=== PATIENT | female | born 1970 ===

== ENCOUNTER 2024-10-14 22:30 | Emergency (ER) | payer OTHER, SELFPAY ==
[2024-10-14 22:44] VITALS: BP 105/75; PULSE 98; RESP 16; TEMP 36.6; O2SAT 98; BMI 20.7
--- NOTE | 2024-10-14 22:49 | ED.GENADULT ---
HPI - General Adult General Chief complaint: Chest Pain Stated complaint: 160 HR, Heavy chest Time Seen by Provider: 10/14/24 22:41 History of Present Illness HPI narrative: 1800 doing lawn work states watch said hr 200, felt heavy chest. laid down, went to 160s. comes to ER to be evaluated but states HR is calmed to 100. current symptom is heart burn. 54-year-old woman presenting to the emergency department with concern of rapid heart rate. Beginning while raking was feeling fatigued, short of breath, and had heart rate in the 160s and not lower than 100 that persisted over a couple of hours. Seems to have improved now presenting to the emergency department. Been left with some heartburn. Has had that before but not common. No known cardiac disease. She mentions a few times that is overall improved and they are considering leaving. History of workup for elevated heart rate with ZIO patch which captured nothing. Labs were done at that time as well and unremarkable. Related Data Home Medications ?Medication ?Instructions ?Recorded ?Confirmed No Known Home Medications 10/14/24 10/14/24 Allergies Allergy/AdvReac Type Severity Reaction Status Date / Time No Known Drug Allergies Allergy Verified 10/14/24 22:47 Review of Systems Status of ROS: Reports: 6 or more systems reviewed and unremarkable except as noted in History and below PFSH PFS Social History Smoking Status: Never smoker Second hand tobacco smoke exposure: No How often do you have a drink containing alcohol: never AUDIT-C Alcohol total score: 0 Non-prescribed substance use: denies use Exam Narrative: Exam Narrative: Pleasant. NAD. Breathing easily. Cranial nerves 2-12 intact. Lungs appear to be clear. Heart in regular rate and rhythm or gallop. Difficult to reproduce discomfort in the epigastrium seems to be deep to the lower sternum. Extremities are well perfused without edema. No JVD. Const: Vital Signs, click to edit/add: Vital Signs - 24 hr 10/14/24 22:44 10/15/24 00:04 10/15/24 00:59 Temperature 97.8 F 97.8 F Pulse Rate [Pulse Oximeter] 98 85 Respiratory Rate 16 16 Blood Pressure [Ri ght Upper Arm] 105/75 112/83 Pulse Oximetry 98 98 98 Oxygen Delivery Me thod Room Air Room Air Documenting provider has reviewed patient's vital signs: yes Course Vital Signs Vital signs: Initial Vital Signs Temperature 97.8 F 10/14/24 22:44 Temperature Source Temporal Artery Scan 10/14/24 22:44 Pulse Rate 98 10/14/24 22:44 Respiratory Rate 16 10/14/24 22:44 Blood Pressure 105/75 10/14/24 22:44 Blood Pressure Mean 85 10/14/24 22:44 Blood Pressure Position Sitting 10/14/24 22:44 Pulse Oximetry 98 10/14/24 22:44 Oxygen Delivery Method Room Air 10/14/24 22:44 Vital Signs Temperature 97.8 F 10/14/24 22:44 Pulse Rate 98 10/14/24 22:44 Respiratory Rate 16 10/14/24 22:44 Blood Pressure 105/75 10/14/24 22:44 Pulse Oximetry 98 10/14/24 22:44 Oxygen Delivery Method Room Air 10/14/24 22:44 Temperature 97.8 F 10/15/24 00:59 Pulse Rate 85 10/15/24 00:59 Respiratory Rate 16 10/15/24 00:59 Blood Pressure 112/83 10/15/24 00:59 Pulse Oximetry 98 10/15/24 00:59 Oxygen Delivery Method Room Air 10/15/24 00:59 Medical Decision Making MDM Narrative Medical decision making narrative: I would suspect supraventricular tachycardia with rate as noted. And secondary demand ischemia. Concerning though I suppose is the heartburn; might represent cardiac ischemia. This is also radiating around to her back bilaterally. She does not have her gallbladder. Later tells me that she did have labs 5 days ago and wondering if repeating labs as necessary. Will just proceed with Shows me normal CMP, TSH and CBC Orders modified to looking at magnesium and troponin I only EKG 1. Independently reviewed by me shows normal sinus rhythm without ischemic changes rate of 91 Initial troponin is 0.1 which is significant. I did anticipate this might be elevated. With her overall comfort I think it would be worth trending her troponin. Continued on clinical data management manager. Repeat troponin I is nearly doubled at 0.19. This was done on the ED trope which can be a few 100ths less than the lab troponin. On reexamination epigastric discomfort has settled though still present. Blood pressure and pulse is continue to look good. Repeat EKG is unchanged at a rate of 74 I did call to discuss with cardiology who are recommending transfer for further cardiac evaluation. Treating as non-STEMI. Aspirin and heparin Lab Data Lab results reviewed: Yes I reviewed the patient's lab results Labs: Lab Results 10/14/24 10/14/24 10/14/24 Range/Units 23:01 23:10 23:27 Hgb Cancelled Magnesium 2.1 (1.5-2.6) mg/dL Troponin I 0.10 H* (0.01-0.04) ng/mL Lab Acknowledgement Test Added POC Troponin I (0.01-0.04) ng/ml 10/15/24 10/15/24 Range/Units 00:50 01:40 Hgb Magnesium (1.5-2.6) mg/dL Troponin I (0.01-0.04) ng/mL Lab Acknowledgement Test Added POC Troponin I 0.19 H (0.01-0.04) ng/ml Critical Care Time Critical Care Time Critical Care Time: Yes Attestation: The patient required my highest level preparedness to intervene emergently and I personally spent this critical care time directly and personally managing the patient. This critical care time included: Obtaining a history; Examining the patient; Pulse oximetry; Ordering and reviewing of studies; Arranging urgent treatment with development of a management plan; Evaluation of patients response to treatment; Frequent reassessment discussions with other providers. This critical care time was performed to assess and manage the high probability of imminent life-threatening deterioration that could result in multiorgan failure. It was exclusive of separate billable procedures and treating other patients and teaching time. Total Critical Care Time in Minutes: 40 Discharge Plan Discharge Clinical Impression: Elevated troponin, Non-ST elevated myocardial infarction (non-STEMI), Tachycardia Patient Disposition: Xfer [facility] Discharge Location: [facility] Condition: Stable Prescriptions: No Action No Known Home Medications Follow Up/Referrals: Provider,Not a Local [Primary Care Provider] - Stand Alone Forms: Renters[employer] Info Instructions
--- OUTSIDE RECORDS SUMMARY | 2024-10-14 23:25 | XMS_ITS | Encounter Summary ---
Author Organization [facility] Address [address] [place] [id number] Care Team Providers Care Tobacco Feeder Catcher Name Role Phone Zaira Moraes APRN, CNP Primary Care Provider Tim Yates MD Unavailable [phone] Funmi Jaime CNP Unavailable [phone] Reason for Referral * Diagnostic Imaging Mammo (Routine) - Pending Review Specialty Diagnoses / Procedures Referred By Timo berkowitz Referred To Contact Radiology. Diagnoses Encounter for screening mammogram for breast cancer Procedures MA Screen with Implants Bilateral w/El Zaira Moraes APRN CNP [address] [place] [id number] Phone: tel: fax: Referral ID Status Reason Start Date Expiration Date V isits Requested Visits Authorized [id number] Pending Review 10/09/2024 10/09/2025 1 1 Reason for Visit * Reason Comments Physical Encounter Details Date Type Department Care Team (Late st Contact Info) Description 10/09/2024 9:00 AM CDT Office Visit [address] [phone] Zaira Moraes APRN CNP [address] [place] [address] [phone] Routine general medical examination at a health care facility (Primary Dx); Encounter for screening mammogram for breast cancer; Screening for lipid disorders; Screening for diabetes mellitus; Screening for deficiency anemia; Screening for thyroid disorder; Encounter for vitamin deficiency screening Social History Tobacco Use Types Packs/Day Years Used Date Smoking Tobacco: Never Smokeless Tobacco: Never Alcohol Use Standard Drinks/Week Comments No 0 (1 standard drink = 0.6 oz pur e alcohol) Social Connection and Isolation Panel [NHANES] A nswer Date Recorded Frequency of Communication with Friends and Fami ly Not on file 10/09/2024 How often do you get togethe r with friends or relatives? Three times a week 10/09/2024 Attends Judaism Services Not on file 10/09 Active Member of Clubs or Organizations Not on f ile 10/09/2024 Attends Club or Organization Meetings Not on edna e 10/09/2024 Marital Status Not on file 10/09/2024 PHQ-2 Answer Date Recorded PHQ-2 Score 0 10/09/2024 [facility] - Occupational Stress Questionnaire Answer Date Recorded Do you feel stress - tense, restless, nervous, or anxious, or unable to sleep at night because your mind is troubled all the time - these days? Not at all 10/09/2024 Exercise Vital Sign Answer Date Recorde d On average, how many days pe r week do you engage in moderate to strenuous exercise (like a brisk walk)? 5 days 10/09/2024 On average, how many minutes do you engage in exercise at this level? 60 min 10/09/2024 Food Insecurity Answer Date Recorded Within the past 12 months, d id you worry that your food would run out before you got money to buy more? No 10/09/2024 Within the past 12 months, d id the food you bought just not last and you didn t have money to get more? No 10/09/2024 Housing Stability Answer Date Recorded Do you have housing? (Phoebe g is defined as stable permanent housing and does not include staying ouside in a car, in a tent, in an abandoned building, in an overnight snf, or couch-surfing.) No 10/09/2024 Are you worried about losing your housing? No 10/09/2024 Financial Resource Strain Answer Date R ecorded Within the past 12 months, h ave you or your family members you live with been unable to get utilities (heat, electricity) when it was really needed? No 10/09/2024 Transportation Needs Answer Date Record ed Within the past 12 months, h as lack of transportation kept you from medical appointments, getting your medicines, non-medical meetings or appointments, work, or from getting things that you need? No 10/09/2024 Interpersonal Safety Answer Date Record ed Do you feel physically and e motionally safe where you currently live? Yes 05/23/2024 Within the past 12 months, h ave you been hit, slapped, kicked or otherwise physically hurt by someone? No 05/23/2024 Within the past 12 months, h ave you been humiliated or emotionally abused in other ways by your partner or ex-partner? No 05/23/2024 Comments No Sex and Gender Information Value Date Recorded Sex Assigned at Not on file Legal Sex Female 9:20 AM CDT Gender Identity Not on file Sexual Orientation Not on file documented as of this encounter Last Filed Vital Signs Vital Sign Reading Time Taken Comments Blood Pressure 108/82 10/09/2024 9:17 AM CDT Pulse 73 10/09/2024 9:17 AM CDT Temperature 36.3 C (97.4 F) 10/09/2024 9:17 AM CDT Respiratory Rate 17 10/09/2024 9:17 AM CDT Oxygen Saturation 99% 10/09/2024 9:17 AM CDT Inhaled Oxygen Concentration - - Weight 48.1 kg (106 lb) 10/09/2024 9:17 AM CDT Height 151.1 cm (4' 11.5) 10/09/2024 9:17 AM CD T Body Mass Index 21.05 10/09/2024 9:17 AM CDT documented in this encounter Patient Instructions * Patient Instructions* Zaira Moraes APRN M[employer]CH ROCK[employer] SYSTEM CREWMEMBER - 10/09/2024 9:00 AM CDT Patient Education Preventive Care Advice This is general advice given by our system to help you stay healthy. However, your care team may have specific advice just for you. Please talk to your care team about your preventive care needs. Nutrition Eat 5 or more servings of fruits and vegetables each day. Try wheat bread, brown rice and whole grain pasta (instead of white bread, rice, and pasta). Get enough calcium and vitamin D. Check the label on foods and aim for 100% of the [employer] MAINTENAN[employer]CH[employer]IC (recommendeddaily allowance). Lifestyle Exercise at least 150 minutes each week (30 minutes a day, 5 days a week). Do muscle strengthening activities 2 days a week. These help control your weight and prevent disease. No smoking. Wear sunscreen to prevent skin cancer. Have a dental exam and cleaning every 6 months. Yearly exams See your health care team every year to talk about: Any changes in your health. Any medicines your care team has prescribed. Preventive care, family planning, and ways to prevent chronic diseases. Shots (vaccines) HPV shots (up to age 26), if you've never had them before. Hepatitis B shots (up to age 59), if you've never had them before. COVID-19 shot: Get this shot when it's due. Flu shot: Get a flu shot every year. Tetanus shot: Get a tetanus shot every 10 years. Pneumococcal, hepatitis A, and RSV shots: Ask your care team if you need these based on your risk. Shingles shot (for age 50 and up) General health tests Diabetes screening: Starting at age 35, Get screened for diabetes at least every 3 years. If you are younger than age 35, ask your care team if you should be screened for diabetes. Cholesterol test: At age 39, start having a cholesterol test every 5 years, or more often if advised. Bone density scan (DEXA): At age 50, ask your care team if you should have this scan for osteoporosis (brittle bones). Hepatitis C: Get tested at least once in your life. STIs (sexually transmitted infections) Before age 24: Ask your care team if you should be screened for STIs. After age 24: Get screened for STIs if you're at risk. You are at risk for STIs (including HIV) if: You are sexually active with more than one person. You don't use condoms every time. You or a partner was diagnosed with a sexually transmitted infection. If you are at risk for HIV, ask about PrEP medicine to prevent HIV. Get tested for HIV at least once in your life, whether you are at risk for HIV or not. Cancer screening tests Cervical cancer screening: If you have a cervix, begin getting regular cervical cancer screening tests starting at age 21. Breast cancer scan (mammogram): If you've ever had breasts, begin having regular mammograms starting at age 40. This is a scan to check for breast cancer. Colon cancer screening: It is important to start screening for colon cancer at age 45. Have a colonoscopy test every 10 years (or more often if you're at risk) Or, ask your provider about stool tests like a FIT test every year or Cologuard test every 3 years. To learn more about your testing options, visit: . For help making a decision, visit: https://bit.ly/zj87905. Prostate cancer screening test: If you have a prostate, ask your care team if a prostate cancer screening test (PSA) at age 55 is right for you. Lung cancer screening: If you are a current or former smoker ages 50 to 80, ask your care team if ongoing lung cancer screenings are right for you. For informational purposes only. Not to replace the advice of your health care provider. Copyright ?? 2022 [employer] [employer]. All rights reserved. Clinically reviewed by the [facility] Transitions Program. [employer] [id number] - REV 07/18. documented in this encounter Progress Notes * Zaira Moraes APRN CNP - 10/09/2024 9:00 AM CDT Images from the original note were not included. Preventive Care Visit [facility] Zaira Olivarez. MATTEO Moraes CNP, Family Medicine Oct 09, 2024 Assessment & Plan Suzanne was seen today for physical. Diagnoses and all orders for this visit: Routine general medical examination at a health care facility - PRIMARY CARE FOLLOW-UP SCHEDULING; Future To consider Shingrix and Prevnar 20 vaccines. Encounter for screening mammogram for breast cancer - MA Screen with Implants Bilateral w/El; Future Screening for lipid disorders - Lipid panel reflex to direct LDL Fasting; Future Screening for diabetes mellitus - Comprehensive metabolic panel (BMP + Alb, Alk Phos, ALT, AST, Total. Bili, TP); Future Screening for deficiency anemia - CBC with platelets; Future - Ferritin; Future Screening for thyroid disorder - TSH with free T4 reflex; Future Encounter for vitamin deficiency screening - Vitamin D Deficiency; Future Counseling Appropriate preventive services were addressed with this patient via screening, questionnaire, or discussion as appropriate for fall prevention, nutrition, physical activity, Tobacco-use cessation, social engagement, weight loss and cognition. Checklist reviewing preventive services available has been given to the patient. Reviewed patient's diet, addressing concerns and/or questions. Return in about 1 year (around 10/09/2025) for Preventative Visit . 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 Reports relatively recent Tdap with occupational health. Hot flashes and night sweats, which are tolerable. S/P hysterectomy in 2013. Advance Care Planning Discussed advance care planning with patient; informed AVS has link to [facility]. 10/09/2024 General Health How would you rate your overall physical health? Good Feel stress (tense, anxious, or unable to sleep) Not at all 10/09/2024 Nutrition Three or more servings of calcium each day? Yes Diet: Regular (no restrictions) How many servings of fruit and vegetables per day? (!) 2-3 How many sweetened beverages each day? 0-1 10/09/2024 Exercise Days per week of moderate/strenous exercise 5 days Average minutes spent exercising at this level 60 min 10/09/2024 Social Factors Frequency of gathering with friends or relatives Three times a week Worry food won't last until get money to buy more No Food not last or not have enough money for food? No Do you have housing? (Housing is defined as stable permanent housing and does not include staying ouside in a car, in a tent, in an abandoned building, in an overnight snf, or couch-surfing.) No Are you worried about losing your housing? No Lack of transportation? No Unable to get utilities (heat,electricity)? No Want help with housing or utility concern? No (!) HOUSING CONCERN PRESENT 10/09/2024 Fall Risk Fallen 2 or more times in the past year? No Trouble with walking or balance? No 10/09/2024 Dental Dentist two times every year? Yes Today's PHQ-9 Score: 10/09/2024 7:42 AM PHQ-9 SCORE PHQ-9 Total Score MyChart 0 PHQ-9 Total Score 0 Patient-reported 10/09/2024 Substance Use Alcohol more than 3/day or more than 7/wk No Do you use any other substances recreationally? No Social History Tobacco Use Smoking status: Never Smokeless tobacco: Never Substance Use Topics Alcohol use: No Drug use: No Mammogram Screening - Mammogram every 1-2 years updated in Health Maintenance based on mutual decision making 10/09/2024 STI Screening New sexual partner(s) since last STI/HIV test? No History of abnormal Pap smear: Status post hysterectomy with removal of cervix and no history of CIN2 or greater or cervical cancer. Health Maintenance and Surgical History updated. 04/21/2011 1:58 PM PAP / HPV PAP (Historical) NIL ASCVD Risk Water Meter Installer The ASCVD Risk score (Fidel RM, et al., 2019) failed to calculate for the following reasons: Cannot find a previous HDL lab Cannot find a previous total cholesterol lab Reviewed and updated as needed this visit by Provider Problems Surg Hx Fam Hx BP Readings from Last 3 Encounters: 10/09/24 108/82 06/06/24 124/86 06/04/24 115/74 Wt Readings from Last 3 Encounters: 10/09/24 48.1 kg (106 lb) 06/06/24 44.7 kg (98 lb 9.6 oz) 06/04/24 46.3 kg (102 lb) Patient Active Problem List Diagnosis Restless leg Symptomatic menopausal or female climacteric states Vitamin D deficiency Herpes zoster History of cervical dysplasia Hx of total vaginal hysterectomy Lichen simplex Pap smear of cervix with ASCUS, cannot exclude HGSIL Rectal polyp Past Surgical History: Procedure Laterality Date CHOLECYSTECTOMY 2005 COLONOSCOPY N/A 06/06/2024 Procedure: Colonoscopy; Surgeon: Tim Levin MD; Location: [facility] HYSTERECTOMY 2013 [place] BREAST AUGMENTATION 2021 Social History Tobacco Use Smoking status: Never Smokeless tobacco: Never Substance Use Topics Alcohol use: No Family History Problem Relation Age of Onset No Known Problems Father Allergies Sister Depression Sister Allergies Sister Depression Sister Allergies Sister Gynecology Sister Depression Brother Diabetes Maternal Grandmother Hypertension Maternal Grandmother Cerebrovascular Disease Maternal Grandmother Eye Disorder Maternal Grandmother Hypertension Maternal Grandfather Cerebrovascular Disease Maternal Grandfather Prostate Cancer Maternal Grandfather Cancer Maternal Grandfather Cardiovascular Maternal Grandfather Heart Disease Maternal Grandfather Lipids Maternal Grandfather Allergies Daughter Allergies Daughter Asthma Daughter Allergies Son Current Outpatient Medications Medication Sig Dispense Refill cyclobenzaprine (FLEXERIL) 5 MG tablet Take 1 tablet (5 mg) by mouth 3 times daily as needed for muscle spasms. 30 tablet 0 Review of Systems Constitutional, HEENT, cardiovascular, pulmonary, gi and gu systems are negative, except as otherwise noted. Objective Exam BP 108/82 Pulse 73 Temp 97.4 ??F (36.3 ??C) Resp 17 Ht 1.511 m (4' 11.5) Wt 48.1 kg (106lb) LMP 04/09/2011 SpO2 99% BMI 21.05 kg/m?? Estimated body mass index is 21.05 kg/m?? as calculated from the following: Height as of this encounter: 1.511 m (4' 11.5). Weight as of this encounter: 48.1 kg (106 lb). Physical Exam GENERAL: alert and no distress EYES: Eyes grossly normal to inspection HENT: ear canals and TM's normal, nose and mouth without ulcers or lesions NECK: no adenopathy, no asymmetry, masses, or scars RESP: lungs clear to auscultation - no rales, rhonchi or wheezes CV: regular rate and rhythm, normal S1 S2, no S3 or S4, no murmur, click or rub, no peripheral edema ABDOMEN: soft, nontender, bowel sounds normal MS: no gross musculoskeletal defects noted, no edema SKIN: no suspicious lesions or rashes NEURO: Normal strength and tone, mentation intact and speech normal PSYCH: mentation appears normal, affect normal/bright Signed Electronically by: Zaira Moraes APRN CNP documented in this encounter Miscellaneous Notes * Result Encounter Note - Zaira Moraes APRN CNP - 10/09/2024 9:00 AM CDT Dear Suzanne, -Normal red blood cell (hgb) levels, normal white blood cell count and normal platelet levels. Thank you, Zaira Moraes APRN, M[employer] SYSTEM CREWMEMBER [facility] * Result Encounter Note - Zaira Moraes APRN CNP - 10/09/2024 9:00 AM CDT Dear Suzanne, -LDL(bad) cholesterol level is slightly elevated, and your triglycerides are slightly elevated. Your HDL is normal. ADVISE: exercising 150 minutes of aerobic exercise per week (30 minutes for 5 days per week or 50 minutes for 3 days per week are options) and eating a low saturated fat/low carbohydrate diet to help to improve this. In 12 months, you should recheck your fasting cholesterol panel. -Liver and gallbladder tests are normal (ALT,AST, Alk phos, bilirubin), kidney function is normal (Cr, GFR), sodium is normal, potassium is normal, calcium is normal, glucose is normal. -TSH (thyroid stimulating hormone) level is normal which indicates normal thyroid function. -Vitamin D level is normal and getting 1000 IU daily in your diet or supplements is recommended. -Ferritin (iron) level is normal. Also, I placed the order for your Tdap and you can get this done here in clinic when it is convenient for you. Thank you, Zaira Olivarez. MATTEO Moraes, FE [facility] * Addendum Note - Zaira Moraes APRN CNP - 10/09/2024 9:00 AM CDTAddended by: ZAIRA MORAES on: 10/09/2024 01:23 PM Modules accepted: Orders documented in this encounter Plan of Treatment Scheduled Orders Name Type Priority Associated Diagnoses Orde r Schedule MA Screen with Implants Bilateral w/El Imaging Routine Encounter for screening mammogram for breast cancer Expected: 10/09/2024 (Approximate), Expires: 10/09/2025 documented as of this encounter Procedures Procedure Name Priority Date/Time Associated Diagnosis Comments VITAMIN D DEFICIENCY SCREENING Routine 10/09/2024 11:07 AM CDT Encounter for vitamin deficiency screening TSH WITH FREE T4 REFLEX Routine 10/09/2024 11:07 AM CDT Screening for thyroid disorder LIPID REFLEX TO DIRECT LDL PANEL Routine 10/09/2024 11:07 AM CDT Screening for lipid disorders FERRITIN Routine 10/09/2024 11:07 AM CDT Screening for deficiency anemia COMPREHENSIVE METABOLIC PANEL Routine 10/09/2024 11:07 AM CDT Screening for diabetes mellitus CBC WITH PLATELETS Routine 10/09/2024 11 :07 AM CDT Screening for deficiency anemia documented in this encounter Results * Ferritin (10/09/2024 11:07 AM CDT) Ferritin 282 11 - 328 ng/mL 10/10/2024 12:57 AM CDT [facility] Blood BLOOD SPECIMEN / Unknown Venipuncture / Unknown 10/09/2024 11:07 AM CDT 10/09/2024 11:07 AM CDT us Zaira Moraes APRN [employer] CREWMEMBER LAB - BLOOD ORDERABLES Final Result [facility] [place] [facility] [address] [facility], [address] [phone] * Vitamin D Deficiency (10/09/2024 11:07 AM CDT) Vitamin D, Total (25-Hydroxy) 21 20 - 50 ng/mL 10/10/2024 12:57 AM CDT [facility] Comment:optimum levels Blood BLOOD SPECIMEN / Unknown Venipuncture / Unknown 10/09/2024 11:07 AM CDT 10/09/2024 11:07 AM CDT Narrative [facility] - 10/10/2024 12:57 AM CDT Season, race, dietary intake, and treatment affect the concentration of 57-kqfceld-Urclzrc D. Values may decrease during winter months and increase during summer months. Vitamin D determination is routinely performed by an immunoassay specific for 25 hydroxyvitamin D3. If an individual is on vitamin D2(ergocalciferol) supplementation, please specify 25 [place] vitamin D2 and D3 level determination by LCMSMS test VITD23. Zaira Moraes APRN [employer] CREWMEMBER LAB - BLOOD ORDERABLES Final Result Performing Organization Address City/[facility]/ZIP Co de Phone Number [facility] [place] [facility] [address] [facility], [address] * TSH with free T4 reflex (10/09/2024 11:07 AM CDT) TSH 1.47 0.30 - 4.20 uIU/mL 10/10/2024 12:57 AM CDT [facility] Blood BLOOD SPECIMEN / Unknown Venipuncture / Unknown 10/09/2024 11:07 AM CDT 10/09/2024 11:07 AM CDT Zaira Moraes APRN [employer] CREWMEMBER LAB - BLOOD ORDERABLES Final Result Performing Organization Address City/[facility]/ZIP Co de Phone Number [facility] [address] [place] [address], [address] * (ABNORMAL) Lipid panel reflex to direct LDL Fasting (10/09/2024 11:07 AM CDT) Cholesterol 235(H) <200 mg/dL 10/10/2024 12:57 AM CDT [facility] Triglycerides 157(H) <150 mg/dL 10/10/2024 12:57 AM CDT [facility] Direct Measure HDL 68 >=50 mg/dL 10/10/2024 12:57 AM CDT [facility] LDL Cholesterol Calculated 136(H) <100 mg/dL 10/10/2024 12:57 AM CDT [facility] Non HDL Cholesterol 167(H) <130 mg/dL 10/10/2024 12:57 AM CDT [facility] Patient Fasting > 8hrs? Unknown 10/10/2024 12:57 AM CDT [facility] Blood BLOOD SPECIMEN / Unknown Venipuncture / Unknown 10/09/2024 11:07 AM CDT 10/09/2024 11:07 AM CDT Narrative [facility] - 10/10/2024 12:57 AM CDT Cholesterol Desirable: < 200 mg/dL Borderline High: 200 - 239 mg/dL High: >= 240 mg/dL Triglycerides Normal: < 150 mg/dL Borderline High: 150 - 199 mg/dL High: 200-499 mg/dL Very High: >= 500 mg/dL Direct Measure HDL Female: >= 50 mg/dL Male: >= 40 mg/dL LDL Cholesterol Desirable: < 100 mg/dL Above Desirable: 100 - 129 mg/dL Borderline High: 130 - 159 mg/dL High: 160 - 189 mg/dL Very High: >= 190 mg/dL Non HDL Cholesterol Desirable: < 130 mg/dL Above Desirable: 130 - 159 mg/dL Borderline High: 160 - 189 mg/dL High: 190 - 219 mg/dL Very High: >= 220 mg/dL us Zaira Moraes FUR REPAIRER [employer] CREWMEMBER LAB - BLOOD ORDERABLES Final Result [facility] [place] [facility] [address] [facility], [address] [place], [place] [id number] * CBC with platelets (10/09/2024 11:07 AM CDT) WBC Count 7.0 4.0 - 11.0 10e3/uL 10/09/2024 11:09 AM CDT [facility] RBC Count 4.80 3.80 - 5.20 10e6/uL 10/09/2024 11:09 AM CDT [facility] Hemoglobin 14.7 11.7 - 15.7 g/dL 10/09/2024 11:09 AM CDT [facility] Hematocrit 43.7 35.0 - 47.0 % 10/09/2024 11:09 AM CDT [facility] MCV 91 78 - 100 fL 10/09/2024 11:09 AM CDT [facility] MCH 30.6 26.5 - 33.0 pg 10/09/2024 11:09 AM CDT [facility] MCHC 33.6 31.5 - 36.5 g/dL 10/09/2024 11:09 AM CDT [facility] RDW 12.0 10.0 - 15.0 % 10/09/2024 11:09 AM CDT [facility] Platelet Count 348 150 - 450 10e3/uL 10/09/2024 11:09 AM CDT [facility] Blood BLOOD SPECIMEN / Unknown Venipuncture / Unknown 10/09/2024 11:07 AM CDT 10/09/2024 11:07 AM CDT Zaira Olivarez Meixl FUR REPAIRER [employer] CREWMEMBER LAB - BLOOD ORDERABLES Final Result [facility] [place] [facility] [address] [place] [address] Lab (no room number, 1st floor of clinic) [place] [address], [facility] * Comprehensive metabolic panel (BMP + Alb, Alk Phos, ALT, AST, Total. Bili, TP) (10/09/2024 11:07 AMCDT) Sodium 137 135 - 145 mmol/L 10/10/2024 12:57 AM CDT [facility] Potassium 4.5 3.4 - 5.3 mmol/L 10/10/2024 12:57 AM CDT [facility] Carbon Dioxide (CO2) 26 22 - 29 mmol/L 10/10/2024 12:57 AM CDT [facility] Anion Gap 10 7 - 15 mmol/L 10/10/2024 12:57 AM CDT [facility] Urea Nitrogen 14.2 6.0 - 20.0 mg/dL 10/10/2024 12:57 AM CDT [facility] Creatinine 0.74 0.51 - 0.95 mg/dL 10/10/2024 12:57 AM CDT [facility] GFR Estimate >90 >60 mL/min/1.7 3m2 10/10/2024 12:57 AM CDT [facility] Comment:eGFR calculated us2020 CKD-EPI equation. Calcium 9.6 8.8 - 10.4 mg/dL 10/10/2024 12:57 AM CDT [facility] Chloride 101 98 - 107 mmol/L 10/10/2024 12:57 AM CDT [facility] Glucose 91 70 - 99 mg/dL 10/10/2024 12:57 AM CDT [facility] Alkaline Phosphatase 72 40 - 150 U/L 10/10/2024 12:57 AM CDT [facility] AST 22 0 - 45 U/L 10/10/2024 12:57 AM CDT [facility] ALT 13 0 - 50 U/L 10/10/2024 12:57 AM CDT [facility] Protein Total 7.8 6.4 - 8.3 g/dL 10/10/2024 12:57 AM CDT [facility] Albumin 4.6 3.5 - 5.2 g/dL 10/10/2024 12:57 AM CDT [facility] Bilirubin Total 0.5 <=1.2 mg/dL 10/10/2024 12:57 AM CDT [facility] Patient Fasting > 8hrs? Unknown 10/10/2024 12:57 AM CDT [facility] Blood BLOOD SPECIMEN / Unknown Venipuncture / Unknown 10/09/2024 11:07 AM CDT 10/09/2024 11:07 AM CDT us Zaira Moraes APRN MULTIPLE LAUNCH ROCKET SYSTEM CREWMEMBER LAB - BLOOD ORDERABLES Final Result [facility] [place] [facility] [address] [facility], Room [address] [id number] documented in this encounter Visit Diagnoses Diagnosis Routine general medical examination at a health care facility- Primary Encounter for screening mammogram for breast cancer Screening for lipid disorders Screening for diabetes mellitus Screening for deficiency anemia Screening for other and unspecified deficiency anemia Screening for thyroid disorder Encounter for vitamin deficiency screening Screening for other and unspecified endocrine, nutritional, metabolic, and immunity disorders documented in this encounter Additional Health Concerns Assessment Noted Time PHQ-9 Depression Total Score: 0 10/10/19 25 7:42 AM CDT documented as of this encounter Care Teams Tobacco Feeder Catcher Relationship Specialty Start Date End Date Zaira Moraes APRN MULTIPLE LAUNCH ROCKET SYSTEM CREWMEMBER [address] [place] [phone] PCP - General Family Medicine 05/23/24 [place] [address] [place] [address] [id number] Internal Medicine 05/23/24 Funmi Jaime CNP [address] [place] [address] [phone] Assigned PCP 06/16/24 documented as of this encounter
--- OUTSIDE RECORDS SUMMARY | 2024-10-14 23:25 | XMS_ITS | Encounter Summary ---
Author Organization [place] Address [address] [place] [address]. [place] [address] Care Team Providers Care Parachute Panel Joiner Name Role Phone Zaira Moraes APRN MARINE SERVICE STATION ATTENDANT Primary Care Provider Tim Yates MD Unavailable [phone] Funmi Jaime MARINE SERVICE STATION ATTENDANT Unavailable [phone] Encounter Details Date Type Department Care Team (Late st Contact Info) Description 06/03/2024 [facility] Medical Advice [facility] [address] [place] [address] Lauren Bueno, RN Social History Tobacco Use Types Packs/Day Years Used Date Smoking Tobacco: Never Smokeless Tobacco: Never Alcohol Use Standard Drinks/Week Comments No 0 (1 standard drink = 0.6 oz pur e alcohol) PHQ-2 Answer Date Recorded PHQ-2 Score 0 05/23/2024 Interpersonal Safety Answer Date Record ed Do [...] on file documented as of this encounter Plan of Treatment Not on file documented as of this encounter Visit Diagnoses Not on filedocumented in this encounter Care Teams Parachute Panel Joiner Relationship Specialty Start Date End Date Zaira Moraes APRN MARINE SERVICE STATION ATTENDANT [address] [place] [address] [phone] PCP - General Family Medicine 05/23/24 Tim Yates MD [address] [place] [address] [phone] Internal Medicine 05/23/24 Fnumi Jaime CNP [address] [place] [address] [phone] Assigned PCP 06/16/24 documented as of this encounter
--- OUTSIDE RECORDS SUMMARY | 2024-10-14 23:25 | XMS_ITS | Encounter Summary ---
Author Organization [place] Address [address] [place] [address]. [place] [address] Care Team Providers Care School Attendance Secretary Name Role Phone Zaira Moraes APRN QUANTITATIVE DEVELOPER Primary Care Provider Tim Yates MD Unavailable [phone] Funmi Jaime QUANTITATIVE DEVELOPER Unavailable [phone] Encounter Details Date Type Department Care Team (Late st Contact Info) Description 05/30/2024 [facility] [place] [facility] [address]th [place] [address] Lauren Bueno, RN Social History [...] on filedocumented in this encounter Care Teams School Attendance Secretary Relationship Specialty Start Date End Date Zaira Moraes APRN QUANTITATIVE DEVELOPER [address] [place] [address] [phone] PCP - General Family Medicine 05/23/24 Tim Yates MD [address] [place] [address] [phone] Internal Medicine 05/23/24 Funmi Jaime CNP [address] [place] [address] [phone] Assigned PCP 06/16/24 documented as of this encounter
--- OUTSIDE RECORDS SUMMARY | 2024-10-14 23:25 | XMS_ITS | Clinical Summary ---
Author Organization [place] Address [address] [place] [phone] Care Team Providers Care Parcel Post Carrier Name Role Phone Zaira Moraes APRN [facility] Primary Care Provider Jude Yates MD Unavailable [phone] Funmi Jaime [facility] Unavailable [phone] Allergies No known active allergies Medications cyclobenzaprin e (FLEXERIL) 5 MG tabletIndicati ons:Acute right-sided low back pain without sciatica Take 1 tablet (5 mg) by mouth 3 times daily as needed for muscle spasms. 30 tablet 06/04/20 24 Active methylPREDNISo lone (MEDROL DOSEPAK) 4 MG tablet therapy packIndication s:Acute right-sided low back pain without sciatica Follow Package Directions 21 tablet 06/04/20 24 025 Discontinued Hospital, Clinic, or Other Facility Administered Medication Ordered Dose Route Frequency Start Date End Date Status sodium chloride (PF) 0.9% PF flush 3 mLIndications:RLQ abdominal pain 3 mL IV EVERY 1 MIN PRN 06/04/2024 Activ e Active Problems Problem Noted Date Diagnosed Date Rectal polyp 05/30/2021 Overview (10/08/2024): 3 mm hyperplastic polyp in the rectum - due 2030 Lichen simplex 04/05/2021 History of cervical dysplasia 03/15/2020 Hx of total vaginal hysterectomy 01/26/2014 Pap smear of cervix with ASCUS, cannot exclude H GSIL 03/25/2013 Overview (10/08/2024): 03/2013 ASC-H 04/2013 [place]: JAQUAN I, ECC Benign 11/2013 HYST Cervix Foci of squamous cellular changes suspicious for HPV Plan: Annual Pap X 20yrs Pap due 03/2022 Herpes zoster 08/29/2012 Overview (10/08/2024): Herpes zoster prevention: Prevention of herpes zoster (shingles) in patients >=50 years of age Vitamin D deficiency 04/26/2011 Restless leg 04/21/2011 Symptomatic menopausal or female climacteric sta darya 04/21/2011 Resolved Problems Problem Noted Date Diagnosed Date Resolved Date Adjustment disorder with mix ed anxiety and depressed mood 11/05/2012 10/09/2024 Encounters Date Type Department Care Team Description 10/09/2024 9:00 AM CDT Office Visit [address] [address] Zaira Moraes APRN DOCTOR OF VETERINARY MEDICINE Routine general medical examination at a health care facility (Primary Dx); Encounter for screening mammogram for breast cancer; Screening for lipid disorders; Screening for diabetes mellitus; Screening for deficiency anemia; Screening for thyroid disorder; Encounter for vitamin deficiency screening 10/09/2024 Travel from Last 3 Months Immunizations Name Administration Dates Next Due COVID-19 Bivalent 12+ (Pfizer) 05/05/2022 Flu, Unspecified 05/07/2020,04/12/2015 Influenza (IIV3) PF 05/09/2016,03/14/2013 Influenza Vaccine >6 months,quad, PF ,05/05/2022,06/03/2021,2018,07/15/2018,05/24/2017,05/08/2016 Influenza, Split Virus, Triv alent, Pf (Fluzone\Fluarix) 05/08/2024 TDAP (Adacel,Boostrix) 12/22/2013 TDAP Vaccine (Adacel) 04/21/2011 Tdap (Adult) Unspecified Formulation 1970 Family History Medical History Relation Comments Depression Brother 2 Allergies Daughter 1 Allergies Daughter 3 Asthma Daughter 3 No Known Problems Father Cancer Maternal Grandfather Cardiovascular Maternal Grandfather Cerebrovascular Disease Maternal Grandfather Heart Disease Maternal Grandfather Hypertension Maternal Grandfather Lipids Maternal Grandfather Prostate Cancer Maternal Grandfather Cerebrovascular Disease Maternal Grandmother Diabetes Maternal Grandmother Eye Disorder Maternal Grandmother Hypertension Maternal Grandmother Allergies Sister 1 Depression Sister 1 Allergies Sister 2 Depression Sister 2 Allergies Sister 3 Gynecology Sister 5 Allergies Son Relation Status Comments Brother 1 Alive Brother 2 Daughter 1 Alive Daughter 2 Alive Daughter 3 Alive Father Other Maternal Grandfather Maternal Grandmother Alive Mother Alive Paternal Grandfather Other Paternal Grandmother Other Sister 1 Alive Sister 2 Alive Sister 3 Alive Sister 4 Alive Sister 5 Alive Son Alive Social History Tobacco Use Types Packs/Day Years [...] relatives? Three times a week 10/09/2024 Attends Spiritism Services Not on file 10/09 Active Member of Clubs or Organizations Not on f ile 10/09/2024 Attends Club or Organization Meetings Not on edna e 10/09/2024 Marital Status Not on file 10/09/2024 PHQ-2 Answer Date Recorded PHQ-2 Score 0 10/09/2024 [facility] - Occupational Stress Questionnaire Answer Date Recorded [...] Date Recorded Do you have housing? (Phoebe campos is defined as stable permanent housing and does not include staying ouside in a car, in a tent, in an abandoned building, in an overnight chcf, or couch-surfing.) No 10/09/2024 Are you worried [...] on file Sexual Orientation Not on file Last Filed Vital Signs Vital Sign Reading [...] Mass Index 21.05 10/09/2024 9:17 AM CDT Plan of Treatment Health Maintenance Due Date Last Done Comments ANNUAL REVIEW OF HM ORDERS 1970 CT COLONOGRAPHY 1970 FIT 1970 FLEX SIG 1970 sDNA (Cologuard) 1970 HEPATITIS B IMMUNIZATION (1 of 3 - 19+ 3-dose series) 1990 Pneumococcal Vaccine: 50+ Years (1 of 1 - PCV) 2021 ZOSTER IMMUNIZATION (1 of 2) 2021 DTAP/TDAP/TD IMMUNIZATION (3 - Td or Tdap) 12/23/2023 12/22/2013, 04/21/2011, 1970 COVID-19 Vaccine ( season) 2024 05/05/2022, 05/23/2021, 07/28/2020, Additional history exists PAP 04/05/2024 04/05/2021, 03/25, 04/21/2011, Additional history exists MAMMO SCREENING 05/05/2025 05/05/2023, 01/2023, 03/02/2023, Additional history exists YEARLY PREVENTIVE VISIT 10/09/2025 10/10/19 25, 03/16/2023, 04/05/2021, Additional history exists DIABETES SCREENING 10/10/2027 10/09/2024, 1 08/05/2023, 04/21/2011 ADVANCE CARE PLANNING 10/09/2029 10/09/2024 LIPID 10/09/2029 10/09/2024, 03/26, 12/10/2008 COLONOSCOPY 06/06/2034 06/06/2024, 05/25, 06/04/2021, Additional history exists COLORECTAL CANCER SCREENING 06/06/2034 HEPATITIS C SCREENING Completed 02/26/2019, 009 HIV SCREENING Completed 02/26/2019, 12/10/2008 INFLUENZA VACCINE Completed 05/08/2024, , 05/05/2022, Additional history exists PHQ-2 (once per calendar year) Completed 10/09/2024, 10/09/2024, 05/23/2024 HPV IMMUNIZATION Aged Out No longer e ligible based on patient's age to complete this topic MENINGITIS IMMUNIZATION Aged Out No l onger eligible based on patient's age to complete this topic Procedures Procedure Name Priority Date/Time Associated Diagnosis Comments FERRITIN Routine 10/09/2024 11:07 AM CDT Screening for deficiency anemia VITAMIN D DEFICIENCY SCREENING Routine 10/09/2024 11:07 AM CDT Encounter for vitamin deficiency screening TSH WITH FREE T4 REFLEX Routine 10/09/2024 11:07 AM CDT Screening for thyroid disorder LIPID REFLEX TO DIRECT LDL PANEL Routine 10/09/2024 11:07 AM CDT Screening for lipid disorders CBC WITH PLATELETS Routine 10/09/2024 11 :07 AM CDT Screening for deficiency anemia COMPREHENSIVE METABOLIC PANEL Routine 10/09/2024 11:07 AM CDT Screening for diabetes mellitus COLONOSCOPY Routine 06/06/2024 1:09 PM MULTIPLE DRUM SANDER HELPER MAMMOGRAM - HIM SCAN Routine 05/05/2023 PAP IMAGED THIN LAYER SCREEN Routine 04/21/2011 1:58 PM CDT Screening for malignant neoplasm of the cervix HIV ANTIGEN ANTIBODY COMBO Routine 12/10/2008 10:00 AM CDT ACUTE HEPATITIS PANEL Routine 12/10/2008 10:00 AM CDT from Last 3 Months or Most Recently Relevant to Health Maintenance Results * Vitamin D Deficiency (10/09/2024 11:07 AM CDT) Vitamin D, Total (25-Hydroxy) 21 20 - 50 ng/mL 10/10/2024 12:57 AM CDT [facility] Comment:optimum levels Blood BLOOD SPECIMEN / Unknown Venipuncture / Unknown 10/09/2024 11:07 AM CDT 10/09/2024 11:07 AM CDT Narrative [facility] - 10/10/2024 12:57 AM CDT Season, race, dietary intake, and treatment affect the concentration of 81-gdeghko-Dibxlad D. Values may decrease during winter months and increase during summer months. Vitamin D determination is routinely performed by an immunoassay specific for 25 hydroxyvitamin D3. If an individual is on vitamin D2(ergocalciferol) supplementation, please specify 25 OH vitamin D2 and D3 level determination by LCMSMS test VITD23. Zaira Moraes APRN DOCTOR OF VETERINARY MEDICINE LAB - BLOOD ORDERABLES Final Result Performing Organization Address City/[facility]/ZIP Co de Phone Number [facility] [place] [facility] 500 [facility], Room [address] [place] [address] * TSH with free T4 reflex (10/09/2024 11:07 AM CDT) TSH 1.47 0.30 - 4.20 uIU/mL 10/10/2024 12:57 AM CDT [facility] Blood BLOOD SPECIMEN / Unknown Venipuncture / Unknown 10/09/2024 11:07 AM CDT 10/09/2024 11:07 AM CDT Zaira Moraes APRN DOCTOR OF VETERINARY MEDICINE LAB - BLOOD ORDERABLES Final Result Performing Organization Address City/[facility] Co de Phone Number [facility] Lab [address] [place] [address], [address] * (ABNORMAL) Lipid panel reflex to [...] High: >= 220 mg/dL us Zaira Moraes APRN DOCTOR OF VETERINARY MEDICINE LAB - BLOOD ORDERABLES Final Result LABORATORY [facility] [place] [facility] [address] [facility], Room [address] * Ferritin (10/09/2024 11:07 AM CDT) Ferritin 282 11 - 328 ng/mL 10/10/2024 12:57 AM CDT [facility] Blood BLOOD SPECIMEN / Unknown Venipuncture / Unknown 10/09/2024 11:07 AM CDT 10/09/2024 11:07 AM CDT Zaira Moraes OPHTHALMIC PATHOLOGIST DOCTOR OF VETERINARY MEDICINE LAB - BLOOD ORDERABLES Final Result LABORATORY [facility] [place] [facility] [address] [facility], [address] * Comprehensive metabolic panel (BMP + Alb, [...] 10/09/2024 11:07 AM CDT Zaira Moraes APRN DOCTOR OF VETERINARY MEDICINE LAB - BLOOD ORDERABLES Final Result [facility] [place] [facility] [address] [facility], Room [address] [place] [address] * CBC with platelets (10/09/2024 11:07 AM CDT) [facility] WBC Count 7.0 4.0 - 11.0 10e3/uL [...] 10/09/2024 11:07 AM CDT Zaira Moraes APRN DOCTOR OF VETERINARY MEDICINE LAB - BLOOD ORDERABLES Final Result [facility] [address] [place] [address] Lab (no room number, 1st floor of clinic) [place] [address], [facility] * COLONOSCOPY (06/06/2024 1:09 PM MULTIPLE DRUM SANDER HELPER) COLONOSCOPY [facility] Patient Name: Suzanne Cheney Procedure Date: 06/06/2024 1:09 PM Date of : 1970 Admit Type: Outpatient Age: 54 Gender: Female Attending MD: JUDE BOWEN MD, Total Sedation Time: 1`9_minutes continuous bedside 1:1 Instrument Name: 254 - Pediatric Colonoscope Procedure: Colonoscopy Indications: Screening for colorectal malignant neoplasm Providers: JUDE BOWEN MD (Doctor) Referring MD: FUNMI JAIME (Referring MD) Medicines: Midazolam 2 mg IV, Fentanyl 100 micrograms IV Complications: No immediate complications. Procedure: Pre-Anesthesia Assessment: - Prior to the procedure, a History and Physical was performed, and patient medications and allergies were reviewed. The patient is competent. The risks and benefits of the procedure and the sedation options and risks were discussed with the patient. All questions were answered and informed consent was obtained. Patient identification and proposed procedure were verified by the physician in the procedure room. Mental Status Examination: alert and oriented. Airway Examination: normal oropharyngeal airway and neck mobility. Respiratory Examination: clear to auscultation. CV Examination: normal. Prophylactic Antibiotics: The patient does not require prophylactic antibiotics. Prior Anticoagulants: The patient has taken no anticoagulant or antiplatelet agents. ASA Grade Assessment: II - A patient with mild systemic disease. After reviewing the risks and benefits, the patient was deemed in satisfactory condition to undergo the procedure. The anesthesia plan was to use moderate sedation / analgesia (conscious sedation). Immediately prior to administration of medications, the patient was re-assessed for adequacy to receive sedatives. The heart rate, respiratory rate, oxygen saturations, blood pressure, adequacy of pulmonary ventilation, and response to care were monitored throughout the procedure. The physical status of the patient was re-assessed after the procedure. After obtaining informed consent, the colonoscope was passed under direct vision. Throughout the procedure, the patient's blood pressure, pulse, and oxygen saturations were monitored continuously. The Olympus Pediatric Colonoscope Model #[id number]-TR195Z, Censitrac # [id number] was introduced through the anus and advanced to the terminal ileum, with identification of the appendiceal orifice and IC valve. The colonoscopy was performed without difficulty. The patient tolerated the procedure well. The quality of the bowel preparation was good. The terminal ileum, ileocecal valve, appendiceal orifice, and rectum were photographed. Findings: The perianal and digital rectal examinations were normal. The terminal ileum appeared normal. The entire examined colon appeared normal on direct and retroflexion views. Impression: - The examined portion of the ileum was normal. - The entire examined colon is normal on direct and retroflexion views. - No specimens collected. Recommendation: - Repeat colonoscopy in 10 years for screening purposes. Procedure Code(s): --- Professional --- G0121, Colorectal cancer screening; colonoscopy on individual not meeting criteria for high risk Diagnosis Code(s): --- Professional --- Z12.11, Encounter for screening for malignant neoplasm of colon CPT copyright 2021 [employer]. All rights reserved. The codes documented in this report are preliminary and upon piecer review may be revised to meet current compliance requirements. Electronically signed by Jude Bowen MD __ JUDE BOWEN MD 06/06/2024 2:10:52 PM I was physically present for the entire viewing portion of the exam. JUDE BOWEN MD Number of Addenda: 0 Note Initiated On: 06/06/2024 1:09 PM Procedure Date: 06/06/2024 1:09:22 PM Scope Withdrawal Time: 0 hours 8 minutes 38 seconds Total Procedure Duration: 0 hours 16 minutes 39 seconds Estimated Blood Loss: Scope In: 1:51:02 PM Scope Out: 2:07:41 PM RADIOLOGY RESULTS 06/06/2024 1:09 PM MULTIPLE DRUM SANDER HELPER Funmi Jaime DOCTOR OF VETERINARY MEDICINE PROCEDURES Final Res ult RADIOLOGY RESULTS * Mammogram - HIM Scan (05/05/2023) Anatomical Region Laterality Modality Other Narrative 05/05/2023 See encounter dated- 05/23/2024 us Patient Reported IMG MAMMOGRAPHY ORDERABLES Maribel l Result * PAP IMAGED THIN LAYER SCREEN (04/21/2011 1:58 PM CDT) PAP MI [facility] Report Patient Name: SUZANNE CHENEY MR#: [id number] Specimen #: [id number] Collected: 04/21/2011 Received: 2011 Reported: 04/26/2011 08:43 Ordering Phy(s): AUDREY AMATO SPECIMEN/STAIN PROCESS: Pap imaged thin layer prep screening (Surepath, FocalPoint with guided screening) Pap-Cyto x 1, Reflex HPV x 1 SOURCE: Cervical, endocervical Pap imaged thin layer prep screening (Surepath, FocalPoint with guided screening) SPECIMEN ADEQUACY: Satisfactory for evaluation. -Transformation zone component present. CYTOLOGIC INTERPRETATION: Negative for Intraepithelial Lesion or Malignancy Electronically signed out by: LUKAS Haynes (ASCP) Processed and screened at [facility], [facility] CLINICAL HISTORY: LMP: 04/09/2011 Papanicolaou Test Limitations: Cervical cytology is a screening test with limited sensitivity; regular screening is critical for cancer prevention; Pap tests are primarily effective for the diagnosis/preventi on of squamous cell carcinoma, not adenocarcinomas or other cancers. TESTING LAB LOCATION: [facility] [address] [place], [place] [address] [place] [phone] COLLECTION SITE: Client: [facility] Location: [facility] Cytologic material (specimen) 04/21/2011 1:58 PM CDT 2011 9:09 AM CDT us Audrey Amato APRN [facility] LAB - OPTIME CLI NICAL SPECIMEN Final Result [facility] * Acute hepatitis panel (12/10/2008 10:00 AM CDT) Hepatitis C Antibody Negative (Negative) 12/10/2008 10:00 AM CDT [facility] Hepatitis B Core Antibody IgM Negative (Negative) 12/10/2008 10:00 AM CDT [facility] Hepatitis B Surface Antigen Negative (Negative) 12/10/2008 10:00 AM CDT [facility] Hepatitis A Antibody IgM Negative (Negative) 12/10/2008 10:00 AM CDT [facility] 12/10/2008 10:0 0 AM CDT 12/10/2008 10:00 AM CDT us Lamar Harvey MD LAB - BLOOD ORDERABLES Fin al Result [facility] [address] LABORATORY [address] [address] * HIV Antigen Antibody Combo (12/10/2008 10:00 AM CDT) HIV Antigen Antibody Combo Negative 12/10/2008 10:00 AM CDT [facility] 12/10/2008 10:0 0 AM CDT 12/10/2008 10:00 AM CDT Narrative [facility] - 12/10/2008 10:00 AM CDT Effective 04/21/10, methodology is HIV 1/2 Antigen/Antibody Combination. Prior to 04/21/10, methodology was HIV 1/2 Antibody only. Lamar Harvey MD LAB - BLOOD ORDERABLES Fin al Result [facility] [address] [address], [facility] [address] [address] from Last 3 Months or Most Recently Relevant to Health Maintenance Insurance [address] [place] [place] [address] CORE Care Teams Parcel Post Carrier Relationship Specialty Start Date End Date Zaira Moraes APRN DOCTOR OF VETERINARY MEDICINE [address] [place] [address] [phone] PCP - General Family Medicine 05/23/24 Jude Yates MD [address] [place] [address] [phone] Internal Medicine 05/23/24 Funmi Jaime, DOCTOR OF VETERINARY MEDICINE [address] [place] [address] [phone] Assigned PCP 06/16/24
--- OUTSIDE RECORDS SUMMARY | 2024-10-14 23:25 | XMS_ITS | Encounter Summary ---
Author Organization [place] Address [address] [place] [address]. [place] [address] Care Team Providers Care Speeder Worker Name Role Phone Zaira Moraes APRN TRAIN GATEMAN Primary Care Provider Tim Yates MD Unavailable [phone] Funmi Jaime TRAIN GATEMAN Unavailable [phone] Encounter Details Date Type Department Care Team (Late st Contact Info) Description 05/30/2024 [facility] Medical [facility] G[facility] Clinic [address] 4th [place] [address] Kristal Carney Social History Tobacco Use Types Packs/Day Years [...] on filedocumented in this encounter Care Teams Speeder Worker Relationship Specialty Start Date End Date Zaira Moraes APRN TRAIN GATEMAN [address] [place] [address] [phone] PCP - General Family Medicine 05/23/24 Tim Yates MD [address] [place] [address] [phone] Internal Medicine 05/23/24 Funmi Jaime CNP [address] [place] [address] [phone] Assigned PCP 06/16/24 documented as of this encounter
--- OUTSIDE RECORDS SUMMARY | 2024-10-14 23:25 | XMS_ITS | Encounter Summary ---
Author Organization [facility] Address [address] [place] [address]. [place] [address] Care Team Providers Care Plater Barrel Name Role Phone Zaira Moraes APRN SHIFT SUPERINTENDENT Primary Care Provider Tim Yates MD Unavailable [phone] Funmi Jaime SHIFT SUPERINTENDENT Unavailable [phone] Encounter Details Date Type Department Care Team (Late st Contact Info) Description 05/26/2024 [facility] Medical Advice [facility] [address] [place] [address] Kristal Carney Social History Tobacco [...] on filedocumented in this encounter Care Teams Plater Barrel Relationship Specialty Start Date End Date Zaira Moraes APRN SHIFT SUPERINTENDENT [address] [place] [address] [id number] PCP - General Family Medicine 05/23/24 Tim Yates MD [address] [place] [address] [phone] Internal Medicine 05/23/24 Funmi Jaime CNP [address] [place] [address] [phone] Assigned PCP 06/16/24 documented as of this encounter
--- OUTSIDE RECORDS SUMMARY | 2024-10-14 23:25 | XMS_ITS | Encounter Summary ---
Author Organization [facility] Address [address] [place] [address]. [place] [address] Care Team Providers Care Nozzle Cement Sprayer Helper Name Role Phone Zaira Moraes APRN HEAD GIRLS GOLF COACH Primary Care Provider Tim Yates MD Unavailable [phone] Funmi Jaime HEAD GIRLS GOLF COACH Unavailable [phone] Encounter Details Date Type Department Care Team (Late st Contact Info) Description 05/30/2024 [facility] Medical Advice [facility] [address] [place] [address] Lauren Bueno, RN Social History [...] on filedocumented in this encounter Care Teams Nozzle Cement Sprayer Helper Relationship Specialty Start Date End Date Zaira Moraes APRN HEAD GIRLS GOLF COACH [address] [place] [address] [phone] PCP - General Family Medicine 05/23/24 Tim Yates MD [address] [place] [address] [phone] Internal Medicine 05/23/24 Funmi Jaime CNP [address] [place] [address] [phone] Assigned PCP 06/16/24 documented as of this encounter
--- OUTSIDE RECORDS SUMMARY | 2024-10-14 23:25 | XMS_ITS | Encounter Summary ---
Author Organization [facility] Address [address] [place] [id number] Care Team Providers Care Preparation Room Manager Name Role Phone Zaira Moraes APRN PRE CODER Primary Care Provider Tim Yates MD Unavailable Funmi Jaime PRE CODER Unavailable [phone] Encounter Details Date Type Department Care Team (Latest Contact Info) Description 10/09/2024 Travel Social History Tobacco Use Types Packs/Day Years [...] relatives? Three times a week 10/09/2024 Attends [employer] Services Not on file 10/09 Active Member of Clubs or Organizations Not on f ile 10/09/2024 Attends Club or Organization Meetings Not on edna e 10/09/2024 Marital Status Not on file 10/09/2024 PHQ-2 Answer Date Recorded PHQ-2 Score 0 10/09/2024 [employer] [facility] [employer] - Occupational Stress [...] in an abandoned building, in an overnight senior care, or couch-surfing.) No 10/09/2024 Are you worried [...] Diagnoses Not on filedocumented in this encounter Additional Health Concerns Assessment Noted Time PHQ-9 Depression Total Score: 0 10/10/19 25 7:42 AM CDT documented as of this encounter Care Teams Preparation Room Manager Relationship Specialty Start Date End Date Zaira Moraes APRN PRE CODER [address] [place] [address] [phone] PCP - General Family Medicine 05/23/24 Tim Yates MD [address] [place] [id number] Internal Medicine 05/23/24 Funmi Jaime, FE [address] [place] [address] [id number] Assigned PCP 06/16/24 documented as of this encounter
[2024-10-14 23:37] LABS: Magnesium* 2.1 mg/dL (1.5-2.6)
[2024-10-15 00:04] VITALS: O2SAT 98
[2024-10-15 00:59] VITALS: BP 112/83; PULSE 85; RESP 16; TEMP 36.6; O2SAT 98
[2024-10-15 01:03] LABS: Troponin, Point-of-Care* 0.19 ng/ml (0.01-0.04)
[2024-10-15 01:51] LABS: Hemoglobin* 14.9 gm/dL (12.0-16.0)
[2024-10-15] MEDS: ASPIRIN 81 MG TAB.CHEW 162 MG PO (01:51)
[2024-10-15] MEDS: HEPARIN 5,000 UNIT/0.5 ML INJ 2900 UNIT IVP (01:51)
[2024-10-15 01:52] LABS: Anion Gap 11 mEq/L (7-15); Blood Urea Nitrogen* 21 mg/dL (7-30); Calcium* 10.2 mg/dL (8.4-10.6); Carbon Dioxide* 25 mmol/L (20-32); Chloride* 104 mmol/L (96-114); Creatinine* 0.8 mg/dL (0.5-1.5); Est. Creatinine Clearance* 58.42; Estimated Glomerular Filt Rate 88 ml/min; Glucose* 118 mg/dL (60-115); Potassium* 4.1 mmol/L (3.6-5.1); Sodium* 140 mmol/L (135-149)
[2024-10-15] MEDS: HEPARIN 25,000 UNIT/500 ML BAG 12 UNIT IV (01:54)
[2024-10-15 01:57] LABS: Prothrombin Time 12.9 Seconds
[2024-10-15 01:58] LABS: Partial Thromboplastin Time* 30 Seconds (23-33)
[2024-10-15 01:59] VITALS: BP 104/56; PULSE 79; RESP 16; TEMP 36.6; O2SAT 98
[2024-10-15 02:02] VITALS: BP 119/84; PULSE 75; RESP 18; TEMP 36.8; O2SAT 99
[2024-10-15 02:56] VITALS: BP 104/56; PULSE 79; RESP 18; TEMP 36.8
== END 2024-10-15 02:57 | disposition short-term general hospital (02) ==
PROVIDERS: Emergency Provider Family Medicine
DX: I21.4 Non-ST elevation (NSTEMI) myocardial infarction (principal); R00.0 Tachycardia, unspecified
CPT/HCPCS: 36415; 80048; 83735; 84443; 84484; 85018; 85610; 85730; 93005; 94761; 99284; 99285; 99291; A9270; J1644

== ENCOUNTER 2024-10-15 02:50 | Outpatient (CLI) | payer OTHER, SELFPAY | END 2024-10-15 02:51 | disposition home or self-care (01) | LOC: AMB 10-30 09:44 | PROVIDERS: Visit Provider Family Medicine | DX: I21.4 Non-ST elevation (NSTEMI) myocardial infarction (principal); R79.89 Other specified abnormal findings of blood chemistry; R00.0 Tachycardia, unspecified | CPT/HCPCS: A0425; A0427 ==